=== PATIENT | female | born 1930 | race Caucasian/White ===

== ENCOUNTER 2018-04-20 10:19 | Emergency (ER) | payer MEDICARE ==
--- NOTE | 2018-04-20 10:43 | ED ---
GI/ HPI - HPI Summary HPI Summary: 88 y/o female presents to the ED c/o bilateral flank pain. Pain rated 7-8/10. Associated sx: mild ABD pain. No FHx aneurysms. Self-cath. Denies fevers, diaphoresis, chills. No BM reported in 5 days; usually pt goes every other day or so. - History of Current Complaint Chief Complaint: EDFlankPain Time Seen by Provider: 04/20/18 10:32 Stated Complaint: BACK PAIN Hx Obtained From: Patient Pain Intensity: 8 Location of Pain: Flank Associated Signs and Symptoms: Positive: Abdominal Pain. Negative: Diaphoresis , Fever, Chills - Allergy/Home Medications Allergies/Adverse Reactions: Allergies Allergy/AdvReac Type Severity Reaction Status Date / Time Sulfa (Sulfonamide Allergy Hives Verified 04/20/18 10:29 Antibiotics) Home Medications: Home Medications Alendronate TAB (NF) [Fosamax TAB (NF)] 70 mg PO WEEKLY 04/20/18 [History Confirmed 04/20/18] Citalopram TAB* [CeleXA TAB*] 10 mg PO DAILY 04/20/18 [History Confirmed ] Dabigatran CAP(NF) [Pradaxa CAP(NF)] 75 mg PO BID 04/20/18 [History Confirmed ] Levothyroxine TAB* [Synthroid TAB*] 88 mcg PO DAILY 04/20/18 [History Confirmed 04/20/18] Lisinopril TAB* [Prinivil TAB*] 10 mg PO DAILY 04/20/18 [History Confirmed 04/20] Metoprolol Succinate XL TAB* [Toprol XL TAB*] 50 mg PO DAILY 04/20/18 [History Confirmed 04/20/18] Trimethoprim TAB* 100 mg PO .TWICE WEEKLY 04/20/18 [History Confirmed 04/20/18] PMH/Surg Hx/FS Hx/Imm Hx Previously Healthy: No Endocrine/Hematology History: Reports: Hx Thyroid Disease - Surgical History Surgery Procedure, Year, and Place: hysterectomy, hernia,right leg, BREAST CYSTS REMOVED Infectious Disease History: No Infectious Disease History: Denies: Hx Clostridium Difficile, Hx Hepatitis, Hx Human Immunodeficiency Virus (HIV), Hx of Known/Suspected MRSA, Hx Shingles, Hx Tuberculosis, Traveled Outside the [place] in Last 30 Days - Family History Known Family History: Positive: Hypertension - Social History Alcohol Use: Occasionally Hx Substance Use: No Substance Use Type: Reports: None Hx Tobacco Use: Yes Smoking Status (MU): Former Smoker Review of Systems Negative: Fever, Chills Negative: Erythema Negative: Sore Throat Negative: Chest Pain Negative: Shortness Of Breath, Cough Negative: Abdominal Pain, Vomiting, Nausea Positive: flank pain. Negative: dysuria, hematuria Negative: Myalgia, Edema Negative: Rash Neurological: Other - No dizziness All Other Systems Reviewed And Are Negative: Yes Physical Exam - Summary Physical Exam Summary: Constitutional: Well-developed, Well-nourished, Alert. (-) Distressed Skin: Warm, Dry HENT: Normocephalic; Atraumatic Eyes: Conjunctiva normal Neck: Musculoskeletal ROM normal neck. (-) JVD, (-) Stridor, (-) Tracheal deviation Cardio: Rhythm regular, rate normal, Heart sounds normal; Intact distal pulses; The pedal pulses are 2+ and symmetric. Radial pulses are 2+ and symmetric. (-) Murmur Pulmonary/Chest wall: Effort normal. (-) Respiratory distress, (-) Wheezes, (-) Rales Abd: Soft, (-), epigastric tenderness, (-) Distension, (-) Guarding, (-) Rebound. No significant CVA tenderness. Musculoskeletal: (-) Edema Lymph: (-) Cervical adenopathy Neuro: Alert, Oriented x3 Psych: Mood and affect Normal Triage Information Reviewed: Yes Vital Signs On Initial Exam: Initial Vitals Temp Pulse Resp BP Pulse Ox 97.7 F 63 17 159/88 94 04/20/18 10:22 04/20/18 10:22 04/20/18 10:22 04/20/18 10:22 04/20/18 10:22 Vital Signs Reviewed: Yes Diagnostics - Vital Signs Vital Signs Temp Pulse Resp BP Pulse Ox 04/20/18 10:22 97.7 F 63 17 159/88 94 - Laboratory Result Diagrams: 04/20/18 10:56 04/20/18 10:56 Lab Statement: Any lab studies that have been ordered have been reviewed, and results considered in the medical decision making process. - CT CHEST/PELVIS/ABD CTA CT Interpretation: Positive (See Comments) - 1. ATHEROSCLEROSIS. 2. MILD ECTASIA OF ASCENDING THORACIC AORTA. NO INTIMAL FLAP TO SUGGEST DISSECTION. 3. HIATAL HERNIA. 4. DIVERTICULOSIS. 5. BILATERAL SACRAL INSUFFICIENCY FRACTURES. CT Interpretation Completed By: Radiologist Re-Evaluation - Re-Evaluation 1 Re-Evaluation Time: 14:07 Comment: Discuss plan to d/c. Pain is resolved GIGU Course/Dx - Course Assessment/Plan: No real tenderness. High risk for UTI. Urine seems infected. There could be some contribution from constipation. PT will be d/c home with Fleet enema, magnesium citrate. No suspicion for surgical ABD. Will not prescribe narcatoic pain medication as it will worsen her constipation. Pt is aware of her pelvic fracture. - Diagnoses Provider Diagnoses: UTI (urinary tract infection), Constipation Discharge - Discharge Plan Condition: Stable Disposition: HOME Prescriptions: Cephalexin CAP* [Keflex CAP*] 500 mg PO QID #28 cap Patient Education Materials: Magnesium Citrate (By mouth), Constipation (ED), Urinary Tract Infection in Women (ED), Fleet Enema (ED) Referrals: Dawn Munoz MD [Primary Care Provider] - 4 Days (PLEASE F/U IN 3-5 DAYS ) [facility] [Outside] (PLEASE CALL FOR AN APPOINTMENT) Additional Instructions: RETURN TO THE ED FOR CHANGING/WORSENING OF SYMPTOMS
[2018-04-20 11:12] LABS: ABS Basophils 0.1 10^3/ul (0-0.2); ABS Eosinophils 0.1 10^3/ul (0-0.6); ABS Lymphocytes 0.9 10^3/ul (1.0-4.8); ABS Neutrophils 7.1 10^3/ul (1.5-7.7); ABS Nucleated RBC 0 10^3/ul; Eosinophil % 1.1 % (0-6); Hematocrit 38 % (35-47); Hemoglobin 12.7 g/dl (12.0-16.0); Lymphocyte % 9.5 % (25-47); Mean Corpuscular HGB Conc 33 g/dl (31-36); Mean Corpuscular Hemoglobin 31 pg (27-31); Mean Corpuscular Volume 93 fL (80-97); Mean Platelet Volume 6.8 um3 (7.4-10.4); Nucleated Red Blood Cells % 0; Platelet Count 286 10^3/ul (150-450); Red Blood Count 4.12 10^6/ul (4.00-5.40); Red Cell Distribution Width 15 % (10.5-15); White Blood Count 9.1 10^3/ul (3.5-10.8)
[2018-04-20] MEDS ORDERED: Ondansetron ODT TAB* 4 MG PO ONE (11:18)
[2018-04-20] MEDS ORDERED: traMADol TAB* 50 MG PO ONE (11:19)
[2018-04-20 11:21] LABS: INR 1.06 (0.77-1.02)
[2018-04-20 11:33] LABS: EGFR Non-African American 47.6 (>60)
[2018-04-20 11:41] LABS: Urine Appearance Cloudy; Urine Blood 3+ (Negative); Urine Color Yellow; Urine Ketones Negative (Negative); Urine Protein Negative (Negative); Urine Red Blood Cell 2+(6-10/hpf) (Absent); Urine Specific Gravity 1.019 (1.010-1.030); Urine Urobilinogen Negative (Negative); Urine White Blood Cell 1+(6-10/hpf) (Absent)
[2018-04-20] MEDS ORDERED: NS 0.9% 1000 ML* 1,000 ML IV ONE (12:06)
[2018-04-20] MEDS ORDERED: Iodixanol* (CONTRAST) 320 MG/ML 100 ML SDV IV ONE (13:08)
--- NOTE | 2018-04-20 13:52 | RAD ---
HISTORY: ABD PAIN INTO BACK, EVAL AORTA COMPARISONS: January 06, 2014 TECHNIQUE: Multiple contiguous axial CT scans were obtained of the chest, abdomen, and pelvis after the administration of intravenous contrast. Coronal and sagittal multiplanar reformations are submitted for review.. 3-D volumetric reconstructions of the aorta are also submitted for review. FINDINGS: CHEST NECK AND THYROID: The lower neck and thyroid are unremarkable. CHEST WALL: There is no lower cervical, axillary, or supraclavicular lymphadenopathy by size criteria. HEART AND PERICARDIUM: The heart is unremarkable. AORTA AND PULMONARY VASCULATURE: There is atherosclerosis of the thoracic aorta. There is no intestinal dilatation or dissection flap. There is mild ectasia of the ascending thoracic aorta up to 3.1 cm. The pulmonary vasculature is normal for technique. MEDIASTINUM: There is no mediastinal lymphadenopathy by size criteria. CALISTA: There is no hilar lymphadenopathy by size criteria. AIRWAY AND ESOPHAGUS: The airway is unremarkable, without endobronchial filling defect. The esophagus is grossly normal. LUNG PARENCHYMA: There are scattered pulmonary parenchymal nodules measuring up to 0.5 cm. These are stable from the previous examination. The stability is consistent with benign nodularity. PLEURA: No pleural abnormalities are noted. BONES AND SOFT TISSUES: There is a scoliotic curvature of the spine. Degenerative changes are noted. ABDOMEN/PELVIS: LIVER: The liver is normal in shape, size, contour, and attenuation. BILE DUCTS: There is no intrahepatic or extrahepatic biliary dilatation. GALLBLADDER: Small gallstones are noted. There is no pericholecystic inflammatory change. PANCREAS: The pancreas is normal, without mass or ductal dilatation. SPLEEN: Normal in size and appearance. UPPER GI TRACT: Evaluation of the gastrointestinal tract is limited by incomplete gastric distention. There is a moderate sliding hiatal hernia. SMALL BOWEL & MESENTERY: The small bowel is normal in contour, course, and caliber. There is no obstruction or dilatation. COLON: There is extensive diverticulosis of the distal colon without pericolonic inflammatory change. ADRENALS: Normal bilaterally. KIDNEYS: The kidneys are normal in shape, size, contour, and axis. There is no hydronephrosis or nephrolithiasis. BLADDER: The bladder is collapsed around a [place] catheter. PELVIC ORGANS: The pelvic organs are not visualized. A pessary is noted. AORTA: There is calcific atherosclerotic disease of the abdominal aorta and its branches, without aneurysmal dilatation IVC: Unremarkable LYMPH NODES: There is no lymphadenopathy by size criteria. ABDOMINAL WALL: There is no evidence for abdominal wall hernia. BONES AND SOFT TISSUES: There is chronic posttraumatic deformity to the left inferior pubic ramus. There is bilateral sacral insufficiency fractures. Degenerative changes are noted of the spine. There is diffuse osteopenia. OTHER: None IMPRESSION: 1. ATHEROSCLEROSIS. 2. MILD ECTASIA OF ASCENDING THORACIC AORTA. NO INTIMAL FLAP TO SUGGEST DISSECTION. 3. HIATAL HERNIA. 4. DIVERTICULOSIS. 5. BILATERAL SACRAL INSUFFICIENCY FRACTURES.
[2018-04-20] MEDS ORDERED: Magnesium CITRATE* 300 ML BTL PO ONE (14:01)
[2018-04-20] MEDS ORDERED: Cephalexin CAP* 500 MG PO ONE (14:01)
[2018-04-20 14:41] VITALS: BP 122/63
== END 2018-04-20 14:40 | disposition home or self-care (01) ==
LOC: ED 10:19
DX: N39.0 Urinary tract infection, site not specified (principal); K59.00 Constipation, unspecified; K44.9 Diaphragmatic hernia without obstruction or gangrene; K57.30 Diverticulosis of large intestine without perforation or abscess without bleeding; I70.0 Atherosclerosis of aorta; K80.80 Other cholelithiasis without obstruction; E07.9 Disorder of thyroid, unspecified; Z79.899 Other long term (current) drug therapy; Z87.891 Personal history of nicotine dependence; Z88.2 Allergy status to sulfonamides
CPT/HCPCS: 36415; 71275; 74174; 80053; 81003; 81015; 83605; 84484; 85025; 85610; 85730; 87040; 87077; 87086; 87186; 99283; A9270-GY; Q9967

== ENCOUNTER 2018-04-21 22:31 | Inpatient (IN) | payer MEDICARE ==
--- NOTE | 2018-04-22 00:57 | ED ---
GI/ HPI - HPI Summary HPI Summary: This patient is a 88 year old F presenting to [facility] accompanied by daughter with a chief complaint of constipation that began 1 week ago. The patient rates the pain 8/10 in severity. Symptoms aggravated by nothing. Symptoms alleviated by nothing. Patient reports low back pain, flank pain (began 2 days ago and worsened today), nausea, decreased appetite, and weakness. Patient denies fever , urinary symptoms, CP, and SOB. Pt reports that she was seen in the ED yesterday for these symptoms and was diagnosed with constipation. She reports that the enema and magnesium citrate did not alleviate the symptoms. Pt reports she self-catheterizes because she is unable to fully empty her bladder without it. - History of Current Complaint Chief Complaint: EDAbdPain Time Seen by Provider: 04/22/18 00:45 Stated Complaint: ABD/BACK PAIN Hx Obtained From: Patient Onset/Duration: Started Weeks Ago, Atraumatic, Still Present Timing: Constant Severity: Severe Current Severity: Severe Pain Intensity: 8 Associated Signs and Symptoms: Positive: Other: - Positive low back pain, flank pain (began 2 days ago), nausea, decreased appetite, and weakness. Negative urinary symptoms, CP, and SOB. Aggravating Factor(s): Nothing Alleviating Factor(s): Nothing - Allergy/Home Medications Allergies/Adverse Reactions: Allergies Allergy/AdvReac Type Severity Reaction Status Date / Time Sulfa (Sulfonamide Allergy Hives Verified 04/21/18 22:35 Antibiotics) PMH/Surg Hx/FS Hx/Imm Hx Previously Healthy: No Endocrine/Hematology History: Reports: Hx Thyroid Disease Denies: Hx Diabetes Cardiovascular History: Reports: Hx Atrial Fibrillation GI History: Reports: Other GI Disorders - Constipation Opthamlomology History: Denies: Hx Legally Blind EENT History: Denies: Hx Deafness - Surgical History Surgery Procedure, Year, and Place: hysterectomy, hernia,right leg, BREAST CYSTS REMOVED Infectious Disease History: No Infectious Disease History: Denies: Hx Clostridium Difficile, Hx Hepatitis, Hx Human Immunodeficiency Virus (HIV), Hx of Known/Suspected MRSA, Hx Shingles, Hx Tuberculosis, Traveled Outside the [place] in Last 30 Days - Family History Known Family History: Positive: Hypertension - Social History Occupation: Retired Lives: Alone Alcohol Use: Occasionally Hx Substance Use: No Substance Use Type: Reports: None Hx Tobacco Use: Yes Smoking Status (MU): Former Smoker Review of Systems Negative: Fever Negative: Chest Pain Negative: Shortness Of Breath Positive: Abdominal Pain, Vomiting, Nausea, Other - Positive decreased appetite Positive: no symptoms reported Positive: Other - Positive back pain All Other Systems Reviewed And Are Negative: Yes Physical Exam - Summary Physical Exam Summary: Appearance: Well-appearing, Well-nourished, lying in bed comfortably Skin: Warm, dry, no obvious rash Eyes: sclera anicteric, no conjunctival pallor ENT: mucous membranes moist, pharynx appears normal Neck: Supple, nontender Respiratory: Clear to auscultation, no signs of respiratory distress Cardiovascular: Normal S1, S2. No murmurs. Normal distal pulses in tibial and radial bilaterally. Abdomen: Soft, nontender, normal active bowel sounds present Musculoskeletal: Normal, Strength/ROM Intact Neurological: A&Ox3, awake and alert, mentation is normal, speech is fluent and appropriate Psychiatric: affect is normal, does not appear anxious or depressed Triage Information Reviewed: Yes Vital Signs On Initial Exam: Initial Vitals Temp Pulse Resp BP Pulse Ox 98.6 F 71 16 112/46 94 04/21/18 22:36 04/21/18 22:36 04/21/18 22:36 04/21/18 22:36 04/21/18 22:36 Vital Signs Reviewed: Yes Diagnostics - Vital Signs Vital Signs Temp Pulse Resp BP Pulse Ox 04/21/18 22:36 98.6 F 71 16 112/46 94 - Laboratory Result Diagrams: 04/22/18 01:12 04/22/18 01:12 Lab Statement: Any lab studies that have been ordered have been reviewed, and results considered in the medical decision making process. GIGU Course/Dx - Diagnoses Provider Diagnoses: Generalized weakness, Constipation, Dehydration - Physician Notifications Discussed Care Of Patient With: Mauricio Ospina Time Discussed With Above Provider: 05:38 Instructed by Provider To: Other - Consult with Dr. Ospina (hospitalist) at 0538. He agrees to admit pt for furter evaluation. Discharge - Sign-Out/Discharge Documenting (check all that apply): Patient Departure - Discharge Plan Condition: Guarded Disposition: ADMITTED TO [facility] Referrals: aDwn Munoz MD [Primary Care Provider] - - Billing Disposition and Condition Condition: GUARDED Disposition: Admitted to [facility]
[2018-04-22 01:26] LABS: ABS Basophils 0.1 10^3/ul (0-0.2); ABS Eosinophils 0 10^3/ul (0-0.6); ABS Lymphocytes 0.7 10^3/ul (1.0-4.8); ABS Nucleated RBC 0 10^3/ul; Eosinophil % 0.3 % (0-6); Hematocrit 36 % (35-47); Hemoglobin 11.9 g/dl (12.0-16.0); Lymphocyte % 7.6 % (25-47); Mean Corpuscular HGB Conc 33 g/dl (31-36); Mean Corpuscular Hemoglobin 31 pg (27-31); Mean Corpuscular Volume 93 fL (80-97); Nucleated Red Blood Cells % 0; Platelet Count 279 10^3/ul (150-450); Red Blood Count 3.84 10^6/ul (4.00-5.40); Red Cell Distribution Width 14 % (10.5-15); White Blood Count 9.9 10^3/ul (3.5-10.8)
[2018-04-22 01:42] LABS: EGFR Non-African American 43.9 (>60)
[2018-04-22 01:52] LABS: Urine Appearance Clear; Urine Blood 2+ (Negative); Urine Color Yellow; Urine Ketones Trace (Negative); Urine Protein Negative (Negative); Urine Red Blood Cell 3+(>10/hpf) (Absent); Urine Specific Gravity 1.026 (1.010-1.030); Urine Urobilinogen Negative (Negative); Urine White Blood Cell Absent (Absent)
[2018-04-22] MEDS ORDERED: NS 0.9% 1000 ML* 2,000 ML IV ONE (04:48)
[2018-04-22] MEDS ORDERED: PEG 3000 GI LAVAGE* 1 GALLON PO ONE (07:36)
--- NOTE | 2018-04-22 08:56 | RAD ---
INDICATION: Abdominal pain and movement x1 week COMPARISON: None TECHNIQUE: 2 views the abdomen were obtained. FINDINGS: There are dilated loops of stool-filled small and large bowel. At the low midline abdomen there is a loop of what appears to be small bowel measuring up to 4.5 cm in diameter. The material in the lumen appears to resemble stool consistent with "fecalization" of the contents of the small bowel. Degenerative changes of the lumbar spine includes loss of intervertebral disc height and marginal osteophyte formation. There is levoconvex curvature of the lumbar spine. IMPRESSION:DEGENERATIVE FINDINGS ARE CONSISTENT WITH AT LEAST PARTIAL BOWEL OBSTRUCTION WITH THE SMALL BOWEL BEING DILATED TO 4.5 CM IN DIAMETER AND THE CONTENTS MORE CLOSELY RESEMBLING STOOL.
[2018-04-22] MEDS: Citalopram TAB* 10 MG PO SCH (09:18)
[2018-04-22] MEDS: Metoprolol Succinate XL TAB* 50 MG PO SCH (09:18)
[2018-04-22] MEDS: Lisinopril TAB* 10 MG PO SCH (09:18)
[2018-04-22] MEDS: CMCS Dabigatran CAP(NF) 75 MG CAP PO SCH ×2 (09:18→21:29)
[2018-04-22] MEDS: Cephalexin CAP* 500 MG PO SCH ×4 (09:18→21:29)
[2018-04-22] MEDS: NS 0.9% 1000 ML* 1,000 ML IV SCH ×2 (09:18→21:38)
[2018-04-22] MEDS: Levothyroxine TAB* 88 MCG TAB PO SCH (09:18)
--- NOTE | 2018-04-22 09:46 | HP ---
CC: Dr. Munoz * HISTORY AND PHYSICAL: DATE OF ADMISSION: 04/22/18 PRIMARY CARE PROVIDER: Dr. Munoz. NEWS PRODUCTION SUPERVISOR: Dr. Patel. CHIEF COMPLAINT: Abdominal pain and weakness. HISTORY OF PRESENT ILLNESS: Ms. Bocanegra is an 88-year-old female who initially presented to the emergency room on 04/20/18 with complaints of abdominal pain and constipation. The patient had not moved her bowels in approximately 5 days. The patient was treated with magnesium citrate and Fleet Enema on discharge from the emergency room and despite utilizing these medications she still did not move her bowels. She represented to the emergency room on 04/21/18 with continued complaints now a feeling of weakness. The patient straight catheterizes to empty her bladder; however, she states that she is now too weak to stand and try to get the straight catheterization complete. 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 The patient because of this represented to the emergency room. In the ER, the patient received 2 L of fluid. She states that she feels essentially the same. At this point in time, I am admitting the patient under observation status to treat her constipation and weakness and make sure she is able to get back to the point where she can straight catheterize self at home. PAST MEDICAL HISTORY: 1. Urinary retention with straight catheterization 4 times daily. 2. Paroxysmal atrial fibrillation. 3. Hypothyroidism. 4. Hypertension. PAST SURGICAL HISTORY: 1. Hysterectomy. 2. Inguinal hernia repair. 3. Bilateral breast cyst removal. MEDICATIONS: 1. Keflex 500 mg p.o. 4 times daily. 2. Fosamax 70 mg p.o. weekly. 3. Trimethoprim 100 mg p.o. twice weekly. 4. Metoprolol XL 50 mg p.o. daily. 5. Lisinopril 10 mg p.o. daily. 6. Levothyroxine 88 mcg p.o. daily. 7. Pradaxa 75 mg p.o. b.i.d. 8. Celexa 10 mg p.o. daily. ALLERGIES: Sulfa. FAMILY HISTORY: Mom in her 50s; she had some sort of heart disease, also she had cirrhosis from alcoholism. Dad at the age of 96; he had a history of CVA and Parkinson's. SOCIAL HISTORY: The patient was a former smoker quitting greater than 20 years ago. She drinks alcohol on occasion. 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 She is . She has 3 children. She indicates that her youngest daughter Hanane Ramirez would be her healthcare proxy. REVIEW OF SYSTEMS: The patient denies any fevers or chills. She states her appetite has been poor over the last several days. No chest pain. She has chronic lower extremity edema and typically wears KLYEIGH hose. She denies any cough or shortness of breath. She does feel somewhat queazy. She admits to diffuse generalized abdominal pain. She is constipated as above. No hematuria , no dysuria. She admits to generalized weakness, nonfocal. No sudden changes in vision. No dysphagia. No joint pains or muscles pains other than ordinary. No rashes. No anxiety or depression. PHYSICAL EXAMINATION GENERAL: The patient is a well-developed elderly female, seen lying in the stretcher in the emergency room in no acute distress. VITAL SIGNS: Blood pressure 125/66, pulse 66, respirations 21, temp 98.6, O2 sat 93%. HEENT: Pupils are equal and round. Extraocular muscles are intact. Oropharynx is clear. Oral mucosa is moist. NECK: There is no submandibular, cervical, or supraclavicular adenopathy. Thyroid is not enlarged. No thyroid nodules are noted. PULMONARY: Lungs are clear to auscultation bilaterally. CARDIAC: Normal S1, S2. Heart rate is irregularly irregular but controlled. There are no murmurs. There is trace lower extremity edema. ABDOMEN: Bowel sounds present. Abdomen is soft, slightly distended, tympanic to percussion, nontender. MUSCULOSKELETAL: There is no cyanosis or clubbing of the digits. There is full active range of motion of all 4 extremities. SKIN: Warm and dry. There are no rashes. NEUROLOGIC: Cranial nerves II through XII are grossly intact. Sensation is intact to light touch throughout. Strength is 5/5 and symmetric in both upper and lower extremities bilaterally. PSYCH: The patient is alert. She is oriented x3. Affect appears appropriate. LABORATORY DATA: WBC 9.9, hemoglobin 11.9, hematocrit 36, platelets 279. Sodium 138, potassium 4.9, chloride 104, CO2 25, BUN 29, creatinine 1.17, this is up from her baseline of 0.9, glucose 137, calcium 8.9, bilirubin 0.5. AST 22 , ALT 11, alk phos 116, albumin 3.6. Urinalysis reveals trace ketones, 2+ blood , 3+ rbc's, absent nitrites and leukocyte esterase. Chest, abdomen, and pelvis CTA on 04/20/18 reveals atherosclerosis, mild ectasia of the ascending thoracic aorta. No intimal flap to suggest dissection. Hiatal hernia is noted, diverticulosis is noted, and bilateral sacral insufficiency fractures are noted. ASSESSMENT AND PLAN: Ms. Bocanegra is an 88-year-old female who has a history of urinary retention requiring straight catheterization, who initially presented to the emergency room on 04/20/18 with complaints of abdominal pain and was diagnosed with constipation, treated as an outpatient with magnesium citrate and Fleet Enema with no response and returns to the emergency room with continued symptoms and weakness now with inability to straight catheterize. 1. Constipation. At this point, the patient has not moved her bowels in approximately 7 days. I will go straight to utilizing Fibroblast to get the patient to move her bowels. I suspect her abdominal pain and nausea will likely improve with treatment of her significant constipation. I will obtain a KUB just to evaluate the degree of her constipation at this point. 2. Weakness. I suspect this is related to decreased oral intake as the patient states that she has not been eating all that much due to nausea and decreased appetite. I suspect this is secondary to her constipation. The patient at this point is too weak to straight catheterize herself. PT evaluation will be ordered. We will evaluate her symptoms once she is moving her bowels and able to eat. 3. Urinary tract infection. On 04/20/18, the patient's urinalysis was consistent with urinary tract infection. Her urine grew greater than 100,000 colonies of E. coli. The patient was started on Keflex, which will continue for this time. The sensitivities are not back on this urine specimen from 04/20. 4. Paroxysmal atrial fibrillation. At this time, the patient sounds to be in atrial fibrillation. She is in a controlled rate. She will continue on her usual doses of metoprolol XL and Pradaxa. 5. Hypertension. The patient's blood pressure is under good control. She will continue on metoprolol XL as above and lisinopril at her home dose. 6. Hypothyroidism. The patient's last TSH in our system was from 2011. I will add on a TSH to labs obtained in the emergency room today to ensure she is appropriately treated for her hypothyroidism. 7. DVT prophylaxis. According to the Adult Thrombosis Prophylaxis Risk Factor Assessment guide, the patient has a total risk factor score of 4 making her high risk. She is already on Pradaxa and this will be utilized as her DVT prophylaxis. 8. Code status is full and again the patient indicates that her daughter Hanane Ramirez is her healthcare proxy. TIME SPENT: Sixty-five minutes was spent admitting this patient, of which greater than half was spent [id number] with the patient reviewing her history and performing physical exam. [id number]/[facility] #: [id number] [place]
[2018-04-23] MEDS: Levothyroxine TAB* 88 MCG TAB PO SCH (05:42)
[2018-04-23] MEDS: Cephalexin CAP* 500 MG PO SCH ×4 (09:54→21:16)
[2018-04-23] MEDS: Metoprolol Succinate XL TAB* 50 MG PO SCH (09:54)
[2018-04-23] MEDS: CMCS Dabigatran CAP(NF) 75 MG CAP PO SCH ×2 (09:55→21:16)
[2018-04-23] MEDS: Lisinopril TAB* 10 MG PO SCH (09:55)
[2018-04-23] MEDS: Citalopram TAB* 10 MG PO SCH (09:55)
--- NOTE | 2018-04-23 11:26 | PN ---
Subjective Date of Service: 04/23/18 Interval History: Pt finally had a very large explosive BM yesterday. She has not moved her bowels since. She denies any nausea. Overall she is feeling better but still weak. She has not been walking much. Objective Active Medications: Cephalexin HCl (Keflex Cap*) 500 mg PO QID [facility] Last Admin: 04/23/18 09:54 Dose: 500 mg Citalopram Hydrobromide (Celexa Tab*) 10 mg PO DAILY [facility] Last Admin: 04/23/18 09:55 Dose: 10 mg Dabigatran (Pradaxa Cap(Nf)) 75 mg PO BID [facility] Last Admin: 04/23/18 09:55 Dose: 75 mg Sodium Chloride (Ns 0.9% 1000 Ml*) 1,000 mls @ 75 mls/hr IV PER RATE [facility] Last Admin: 04/22/18 21:38 Dose: 75 mls/hr Levothyroxine Sodium (Synthroid Tab*) 88 mcg PO 0600 [facility] Last Admin: 04/23/18 05:42 Dose: 88 mcg Lisinopril (Prinivil Tab*) 10 mg PO DAILY [facility] Last Admin: 04/23/18 09:55 Dose: 10 mg Metoprolol Succinate (Toprol Xl Tab*) 50 mg PO DAILY [facility] Last Admin: 04/23/18 09:54 Dose: 50 mg Vital Signs - 8 hr 04/23/18 07:25 Temperature 98.5 F Pulse Rate 66 Respiratory 19 Rate Blood Pressure 134/49 (mmHg) O2 Sat by Pulse 93 Oximetry Oxygen Devices in Use Now: Nasal Cannula - 2L Appearance: Elderly female sitting in a chair, NAD Eyes: No Scleral Icterus Ears/Nose/Mouth/Throat: Mucous Membranes Moist Respiratory: Symmetrical Chest Expansion and Respiratory Effort, Clear to Auscultation - diminished breath sounds at the bases Cardiovascular: NL Sounds; No Murmurs; No JVD, No Edema, - - irregularly irregular, controlled rate Abdominal: NL Sounds; No Tenderness; No Distention Extremities: No Clubbing, Cyanosis Skin: No Nodules or Sclerosis Neurological: Alert and Oriented x 3 Result Diagrams: 04/22/18 01:12 04/22/18 01:12 Assess/Plan/Problems-Billing Ms Bocanegra is an 88 yo F who has a h/o PAF, HTN and hypothyroidism who presented to the ER with c/o weakness and constipation. - Patient Problems (1) Constipation Current Visit: Yes Status: Acute Code(s): K59.00 - CONSTIPATION, UNSPECIFIED SNOMED Code(s): 16945994 Comment: Resolved after GoLytely. (2) Weakness Current Visit: Yes Status: Acute Code(s): R53.1 - WEAKNESS SNOMED Code(s) : 39504746 Comment: Likely secondary to poor oral intake when so constipated. Advance diet. She has been hydrated. PT eval cut short yesterday as pt needed to have BM upon standing. Nursing to walk with the patient today. Likely home this afternoon or tomorrow depending on her mobility. (3) E-coli UTI Current Visit: Yes Status: Acute Code(s): N39.0 - URINARY TRACT INFECTION, SITE NOT SPECIFIED; B96.20 - UNSP ESCHERICHIA COLI THE CAUSE OF DISEASES CLASSD [facility] SNOMED Code(s): 605002531 Comment: Pt dx with E coli UTI 04/20/18- she remains on keflex. Will complete 7 days of therapy. (4) PAF (paroxysmal atrial fibrillation) Current Visit: Yes Status: Acute Code(s): I48.0 - PAROXYSMAL ATRIAL FIBRILLATION SNOMED Code(s): 769967685 Comment: HR is controlled. Continue metoprolol XL and pradaxa. (5) HTN (hypertension) Current Visit: Yes Status: Acute Code(s): I10 - ESSENTIAL (PRIMARY) HYPERTENSION SNOMED Code(s): 34049028 Comment: BP is under good control on her usual doses of lisinopril and metoprolol XL. (6) Hypothyroid Current Visit: Yes Status: Acute Code(s): E03.9 - HYPOTHYROIDISM, UNSPECIFIED SNOMED Code(s): 45328594 Comment: TSH in good range. Continue current dose of synthroid. (7) DVT prophylaxis Current Visit: Yes Status: Acute Code(s): [id number] - SNOMED Code(s): 881112338 Comment: pradaxa (8) Full code status Current Visit: Yes Status: Acute Code(s): Z78.9 - OTHER SPECIFIED HEALTH STATUS SNOMED Code(s): 808852108
--- NOTE | 2018-04-23 14:09 | RAD ---
INDICATION: Hypoxia COMPARISON: Most recent comparison chest x-rays dated December 06, 2015 TECHNIQUE: Single AP portable view of the chest was obtained. FINDINGS: Image quality is compromised due to the relative inferiority of a portable chest x-ray. The heart and mediastinum exhibit normal size and contour. Again seen is coarse atherosclerotic calcification overlying the arch of the aorta. There are bibasilar densities obscuring the lung bases and bilateral diaphragm as well as causing wanting of the costophrenic angles. More superiorly the lungs are adequately aerated. Visualized bones are normal for the patient's age. IMPRESSION: Likely bibasilar pleural effusions with adjacent compressive atelectasis of the lower lobes.
[2018-04-23] MEDS: NS 0.9% 1000 ML* 1,000 ML IV SCH (16:13)
[2018-04-24] MEDS: Levothyroxine TAB* 88 MCG TAB PO SCH (06:01)
[2018-04-24] MEDS: NS 0.9% 1000 ML* 1,000 ML IV SCH (06:25)
[2018-04-24 07:05] LABS: EGFR Non-African American 71.1 (>60)
[2018-04-24] MEDS: Cephalexin CAP* 500 MG PO SCH ×4 (08:43→19:54)
[2018-04-24] MEDS: CMCS Dabigatran CAP(NF) 75 MG CAP PO SCH ×2 (08:44→19:54)
[2018-04-24] MEDS: Citalopram TAB* 10 MG PO SCH (08:45)
[2018-04-24] MEDS: Metoprolol Succinate XL TAB* 50 MG PO SCH (08:45)
[2018-04-24] MEDS: Lisinopril TAB* 10 MG PO SCH (08:45)
--- NOTE | 2018-04-24 08:45 | PN ---
Subjective Date of Service: 04/24/18 Interval History: Pt states she is feeling a little better. She states she got some sleep last night. She denies any constant abdominal pain but states she has still been getting crampy abdominal pain. She describes the cramps as originating in her thighs then moving up to her abdomen. She has not walked yet this AM. Objective Active Medications: Cephalexin HCl (Keflex Cap*) 500 mg PO QID [facility] Last Admin: 04/23/18 21:16 Dose: 500 mg Citalopram Hydrobromide (Celexa Tab*) 10 mg PO DAILY [facility] Last Admin: 04/23/18 09:55 Dose: 10 mg Dabigatran (Pradaxa Cap(Nf)) 75 mg PO BID [facility] Last Admin: 04/23/18 21:16 Dose: 75 mg Sodium Chloride (Ns 0.9% 1000 Ml*) 1,000 mls @ 75 mls/hr IV PER RATE [facility] Last Admin: 04/24/18 06:25 Dose: 75 mls/hr Levothyroxine Sodium (Synthroid Tab*) 88 mcg PO 0600 [facility] Last Admin: 04/24/18 06:01 Dose: 88 mcg Lisinopril (Prinivil Tab*) 10 mg PO DAILY [facility] Last Admin: 04/23/18 09:55 Dose: 10 mg Metoprolol Succinate (Toprol Xl Tab*) 50 mg PO DAILY [facility] Last Admin: 04/23/18 09:54 Dose: 50 mg Vital Signs - 8 hr 04/24/18 04/24/18 04/24/18 02:41 03:33 07:37 Temperature 98.6 F 98.5 F Pulse Rate 67 72 Respiratory 20 18 Rate Blood Pressure 119/48 136/58 (mmHg) O2 Sat by Pulse 94 96 94 Oximetry Oxygen Devices in Use Now: Nasal Cannula Result Diagrams: 04/22/18 01:12 04/24/18 06:22 Assess/Plan/Problems-Billing Ms Bocanegra is an 88 yo F who has a h/o PAF, HTN and hypothyroidism who presented to the ER with c/o weakness and constipation. - Patient Problems (1) Hypoxia Current Visit: Yes Status: Acute Code(s): R09.02 - HYPOXEMIA SNOMED Code(s ): 400286508 Comment: The patient has been on supplemental O2 her entire admission. Yesterday attempted to ambulate the patient and her sats were in the 80's on RA. CXR shows basilar effusions. She has not been ambulating much so likely she also has atelectasis. Recheck today. (2) Constipation Current Visit: Yes Status: Acute Code(s): K59.00 - CONSTIPATION, UNSPECIFIED SNOMED Code(s): 87390337 Comment: Resolved after GoLytely. (3) Weakness Current Visit: Yes Status: Acute Code(s): R53.1 - WEAKNESS SNOMED Code(s) : 96689506 Comment: Pt still weak. Will work with nursing and PT to evaluate her ability to safely ambulate. Possibly home this afternoon if stable. Creatinine has returned to normal. (4) E-coli UTI Current Visit: Yes Status: Acute Code(s): N39.0 - URINARY TRACT INFECTION, SITE NOT SPECIFIED; B96.20 - UNSP ESCHERICHIA COLI THE CAUSE OF DISEASES CLASSD [facility] SNOMED Code(s): 907083145 Comment: Pt dx with E coli UTI 04/20/18- Today is D#5/. (5) PAF (paroxysmal atrial fibrillation) Current Visit: Yes Status: Acute Code(s): I48.0 - PAROXYSMAL ATRIAL FIBRILLATION SNOMED Code(s): 748888692 Comment: HR is controlled. Continue metoprolol XL and pradaxa. (6) HTN (hypertension) Current Visit: Yes Status: Acute Code(s): I10 - ESSENTIAL (PRIMARY) HYPERTENSION SNOMED Code(s): 80587025 Comment: BP is under good control on her usual doses of lisinopril and metoprolol XL. (7) Hypothyroid Current Visit: Yes Status: Acute Code(s): E03.9 - HYPOTHYROIDISM, UNSPECIFIED SNOMED Code(s): 48024380 Comment: TSH in good range. Continue current dose of synthroid. (8) DVT prophylaxis Current Visit: Yes Status: Acute Code(s): VFX8364 - SNOMED Code(s): 570626780 Comment: pradaxa (9) Full code status Current Visit: Yes Status: Acute Code(s): Z78.9 - OTHER SPECIFIED HEALTH STATUS SNOMED Code(s): 972880946
[2018-04-24] MEDS ORDERED: Furosemide IV* 10 MG/ML 2 ML VIAL (20 MG) IV ONE (16:03)
--- NOTE | 2018-04-24 16:04 | PN ---
Progress Note - Progress Note Date of Service: 04/24/18 Note: Pt remains hypoxic. Will give lasix 10mg IV x1. Recheck O2 sats tomorrow.
[2018-04-25] MEDS: Levothyroxine TAB* 88 MCG TAB PO SCH (05:33)
[2018-04-25] MEDS: Cephalexin CAP* 500 MG PO SCH ×4 (07:55→22:09)
[2018-04-25] MEDS: Metoprolol Succinate XL TAB* 50 MG PO SCH (07:55)
[2018-04-25] MEDS: Citalopram TAB* 10 MG PO SCH (07:55)
[2018-04-25] MEDS: Lisinopril TAB* 10 MG PO SCH (07:55)
[2018-04-25] MEDS: CMCS Dabigatran CAP(NF) 75 MG CAP PO SCH ×2 (07:56→22:08)
[2018-04-25] MEDS ORDERED: Albuterol 2.5 MG/3 ML NEB.SOL* (0.083%) INH ONE (08:50)
--- NOTE | 2018-04-25 08:54 | PN ---
Subjective Date of Service: 04/25/18 Interval History: Pt is feeling ok today. She states she wished the gas in her abdomen would go away. She denies any abdominal pain at this time. She agrees to get up and get walking more today. She states she does get SOB with exertion. Objective Active Medications: Cephalexin HCl (Keflex Cap*) 500 mg PO QID [facility] Last Admin: 04/25/18 07:55 Dose: 500 mg Citalopram Hydrobromide (Celexa Tab*) 10 mg PO DAILY [facility] Last Admin: 04/25/18 07:55 Dose: 10 mg Dabigatran (Pradaxa Cap(Nf)) 75 mg PO BID [facility] Last Admin: 04/25/18 07:56 Dose: 75 mg Levothyroxine Sodium (Synthroid Tab*) 88 mcg PO 0600 [facility] Last Admin: 04/25/18 05:33 Dose: 88 mcg Lisinopril (Prinivil Tab*) 10 mg PO DAILY [facility] Last Admin: 04/25/18 07:55 Dose: 10 mg Metoprolol Succinate (Toprol Xl Tab*) 50 mg PO DAILY [facility] Last Admin: 04/25/18 07:55 Dose: 50 mg Vital Signs - 8 hr 04/25/18 04/25/18 03:41 07:19 Temperature 97.9 F 98.1 F Pulse Rate 66 71 Respiratory 18 18 Rate Blood Pressure 120/51 133/58 (mmHg) O2 Sat by Pulse 96 96 Oximetry Oxygen Devices in Use Now: Nasal Cannula Appearance: Elderly female sitting up in a chair, eating breakfast, NAD Eyes: No Scleral Icterus Ears/Nose/Mouth/Throat: Mucous Membranes Moist Respiratory: Symmetrical Chest Expansion and Respiratory Effort, Clear to Auscultation - diminshed breath sounds in lower lobes with expiratory wheezes Cardiovascular: NL Sounds; No Murmurs; No JVD, No Edema, - - irregularly irregular, controlled rate Abdominal: NL Sounds; No Tenderness; No Distention Extremities: No Clubbing, Cyanosis Skin: No Nodules or Sclerosis Neurological: Alert and Oriented x 3 Result Diagrams: 04/22/18 01:12 04/24/18 06:22 Assess/Plan/Problems-Billing Ms Bocanegra is an 88 yo F who has a h/o PAF, HTN and hypothyroidism who presented to the ER with c/o weakness and constipation. - Patient Problems (1) Hypoxia Current Visit: Yes Status: Acute Code(s): R09.02 - HYPOXEMIA SNOMED Code(s ): 164614966 Comment: The patient still has diminshed breath sounds at the bases and expiratory wheezes. I think her hypoxia is related to her past history of smoking and likely some degree of COPD and fluid (has pleural effusions on CXR) . IV lasix given yesterday-when I checked her O2 sat this AM she fluctuated from 87-94% (mostly in the 90's). She has been hypoxic looking back, to her time in the ER prior to receiving IV fluids. I question if she has needed supplemental O2 for a while. Will check sats again today at rest and ambulation with nursing. (2) Constipation Current Visit: Yes Status: Acute Code(s): K59.00 - CONSTIPATION, UNSPECIFIED SNOMED Code(s): 55480955 Comment: Resolved after GoLytely. Pt now with significant gas. Will start simethicone. (3) Weakness Current Visit: Yes Status: Acute Code(s): R53.1 - WEAKNESS SNOMED Code(s) : 71407079 Comment: Pt still weak. PT noted the patient would benefit from STR. Pt will consider this but wants to discuss with her daughter. (4) E-coli UTI Current Visit: Yes Status: Acute Code(s): N39.0 - URINARY TRACT INFECTION, SITE NOT SPECIFIED; B96.20 - UNSP ESCHERICHIA COLI THE CAUSE OF DISEASES CLASSD [facility] SNOMED Code(s): 162845361 Comment: Pt dx with E coli UTI 04/20/18- Today is D#6/7. (5) PAF (paroxysmal atrial fibrillation) Current Visit: Yes Status: Acute Code(s): I48.0 - PAROXYSMAL ATRIAL FIBRILLATION SNOMED Code(s): 016317918 Comment: HR is controlled. Continue metoprolol XL and pradaxa. (6) Urinary retention Current Visit: Yes Status: Acute Code(s): R33.9 - RETENTION OF URINE, UNSPECIFIED SNOMED Code(s): 218831160 Comment: Continue to straight cath 4x daily. (7) HTN (hypertension) Current Visit: Yes Status: Acute Code(s): I10 - ESSENTIAL (PRIMARY) HYPERTENSION SNOMED Code(s): 15366063 Comment: BP is under good control on her usual doses of lisinopril and metoprolol XL. (8) Hypothyroid Current Visit: Yes Status: Acute Code(s): E03.9 - HYPOTHYROIDISM, UNSPECIFIED SNOMED Code(s): 59940296 Comment: TSH in good range. Continue current dose of synthroid. (9) DVT prophylaxis Current Visit: Yes Status: Acute Code(s): ACU7069 - SNOMED Code(s): 908974862 Comment: pradaxa (10) Full code status Current Visit: Yes Status: Acute Code(s): Z78.9 - OTHER SPECIFIED HEALTH STATUS SNOMED Code(s): 653464757
[2018-04-25] MEDS: Acetaminophen TAB* 325 MG PO PRN ×2 (17:48→22:08)
[2018-04-26] MEDS: Levothyroxine TAB* 88 MCG TAB PO SCH (05:53)
[2018-04-26] MEDS: Metoprolol Succinate XL TAB* 50 MG PO SCH (09:50)
[2018-04-26] MEDS: Lisinopril TAB* 10 MG PO SCH (09:50)
[2018-04-26] MEDS: Cephalexin CAP* 500 MG PO SCH ×4 (09:50→20:42)
[2018-04-26] MEDS: Citalopram TAB* 10 MG PO SCH (09:50)
[2018-04-26] MEDS: Simethicone TAB* 80 MG TAB.CHEW PO PRN (09:50)
[2018-04-26] MEDS: CMCS Dabigatran CAP(NF) 75 MG CAP PO SCH ×2 (09:53→20:42)
[2018-04-26] MEDS: Polyethylene Glycol 3350* 17 GM PACKET PO PRN (11:42)
[2018-04-26] MEDS: Docusate CAP* 100 MG PO PRN (11:42)
--- NOTE | 2018-04-26 12:18 | RAD ---
Indication: Hypoxia. Single frontal view of the chest performed at 1155 hours was reviewed. Comparison is made with previous exam dated April 23, 2018. Cardiomegaly. Bilateral pleural effusion with bibasilar atelectasis is noted. No evidence of alveolar consolidation is noted. IMPRESSION: CARDIOMEGALY WITH BILATERAL PLEURAL EFFUSIONS AND BIBASILAR ATELECTASIS.
[2018-04-26] MEDS ORDERED: Furosemide IV* 10 MG/ML 2 ML VIAL (20 MG) IV ONE (14:07)
--- NOTE | 2018-04-26 15:27 | PN ---
Subjective Date of Service: 04/26/18 Interval History: Hypoxic to 86% on room air at rest per RN report. Ms. Bocanegra feels okay and has no complaints at this time, she is anxious to go home to her cat but is agreeable to [facility]. She does not feel short of breath, she denies cough, orthopnea, chest pain, sputum production. Objective Active Medications: Acetaminophen (Tylenol Tab*) 650 mg PO Q4H PRN PRN Reason: PAIN Last Admin: 04/25/18 22:08 Dose: 650 mg Cephalexin HCl (Keflex Cap*) 500 mg PO QID [facility] Last Admin: 04/26/18 13:45 Dose: 500 mg Citalopram Hydrobromide (Celexa Tab*) 10 mg PO DAILY [facility] Last Admin: 04/26/18 09:50 Dose: 10 mg Dabigatran (Pradaxa Cap(Nf)) 75 mg PO BID [facility] Last Admin: 04/26/18 09:53 Dose: 75 mg Docusate Sodium (Colace Cap*) 200 mg PO DAILY PRN PRN Reason: CONSTIPATION Last Admin: 04/26/18 11:42 Dose: 200 mg Levothyroxine Sodium (Synthroid Tab*) 88 mcg PO 0600 [facility] Last Admin: 04/26/18 05:53 Dose: 88 mcg Lisinopril (Prinivil Tab*) 10 mg PO DAILY [facility] Last Admin: 04/26/18 09:50 Dose: 10 mg Metoprolol Succinate (Toprol Xl Tab*) 50 mg PO DAILY [facility] Last Admin: 04/26/18 09:50 Dose: 50 mg Polyethylene Glycol/Electrolytes (Miralax*) 17 gm PO DAILY PRN PRN Reason: CONSTIPATION Last Admin: 04/26/18 11:42 Dose: 17 gm Simethicone (Mylicon Tab*) 80 mg PO Q6H PRN PRN Reason: gas Last Admin: 04/26/18 09:50 Dose: 80 mg Vital Signs - 8 hr 04/26/18 04/26/18 04/26/18 07:44 08:00 11:26 Temperature 97.8 F Pulse Rate 62 73 Respiratory 18 Rate Blood Pressure 133/58 108/53 (mmHg) O2 Sat by Pulse 96 98 Oximetry 04/26/18 11:31 Temperature Pulse Rate Respiratory Rate Blood Pressure (mmHg) O2 Sat by Pulse 86 Oximetry Oxygen Devices in Use Now: Nasal Cannula Appearance: alert, sitting up in chair, breathing comfortably and speaking in full sentences Eyes: No Scleral Icterus Ears/Nose/Mouth/Throat: NL Teeth, Lips, Gums Neck: NL Appearance and Movements; NL JVP Respiratory: Symmetrical Chest Expansion and Respiratory Effort, Clear to Auscultation, - - few crackles at bases Cardiovascular: NL Sounds; No Murmurs; No JVD, RRR Abdominal: NL Sounds; No Tenderness; No Distention, No Hepatosplenomegaly Lymphatic: No Cervical Adenopathy Extremities: No Edema Skin: No Rash or Ulcers Neurological: Alert and Oriented x 3 Result Diagrams: 04/22/18 01:12 04/24/18 06:22 Assess/Plan/Problems-Billing Ms Bocanegra is an 88 yo F who has a h/o PAF, HTN and hypothyroidism who presented to the ER with c/o weakness and constipation. - Patient Problems (1) Hypoxia Current Visit: Yes Status: Acute Code(s): R09.02 - HYPOXEMIA SNOMED Code(s ): 849431063 Comment: IV lasix given yesterday with no improvement Repeat CXR today showed pleural effusions This is new for her--check CT chest and TTE Re-try lasix again today (2) Constipation Current Visit: Yes Status: Acute Code(s): K59.00 - CONSTIPATION, UNSPECIFIED SNOMED Code(s): 55668099 Comment: Resolved after GoLytely. Start bowel regimen. Counseled on high fiber diet--she doesn't think she has much fiber in her diet at all and she didn't know what to look for that has fiber in it. (3) E-coli UTI Current Visit: Yes Status: Acute Code(s): N39.0 - URINARY TRACT INFECTION, SITE NOT SPECIFIED; B96.20 - UNSP ESCHERICHIA COLI THE CAUSE OF DISEASES CLASSD [facility] SNOMED Code(s): 372723135 Comment: Pt dx with E coli UTI 04/20/18- Today is D#7/. (4) HTN (hypertension) Current Visit: Yes Status: Acute Code(s): I10 - ESSENTIAL (PRIMARY) HYPERTENSION SNOMED Code(s): 80935225 Comment: BP is under good control on her usual doses of lisinopril and metoprolol XL. (5) PAF (paroxysmal atrial fibrillation) Current Visit: Yes Status: Acute Code(s): I48.0 - PAROXYSMAL ATRIAL FIBRILLATION SNOMED Code(s): 413609598 Comment: HR is controlled. Continue metoprolol XL and pradaxa. (6) Weakness Current Visit: Yes Status: Acute Code(s): R53.1 - WEAKNESS SNOMED Code(s) : 74861878 Comment: PT recommended STR Has bed at [facility]
--- NOTE | 2018-04-26 17:30 | ECHO ---
Patient: KYLEE DASILVA [facility] Rec#: [id number] : 1930 Date: 04/26/2018 Age: 88y Height: 152.4 cm / 60.0 in Weight: 57.15 kg / 126.0 lbs Sex: F BSA: 1.53 Admit Date#: 04/23/2018 Referring: Reyna Rios MD Reading: Karey Mills MD [employer] Offbearer: Claudia Paula RDCS CC: Dawn Munoz MD Transthoracic Echocardiogram Indication: Congestive heart failiure Indications Congestive Heart Failure Findings History: PAF,hypothyroid,HTN. Technical Comments: The study quality is good. Completed at 1530. Left Ventricle: The left ventricular chamber size is normal. Global left ventricular wall motion and contractility are within normal limits. The left ventricle appears hyperdynamic. The estimated ejection fraction is greater than 65%. Normal left ventricular diastolic filling is observed. Abnormal left ventricular diastolic filling is observed, consistent with impaired relaxation. Left Atrium: The left atrium is mildly dilated. Right Ventricle: The right ventricular cavity size is normal. The right ventricular global systolic function is normal. Right Atrium: The right atrial cavity size is normal. Aortic Valve: The aortic valve is trileaflet. There is no evidence of aortic valve thickening. There is no evidence of aortic regurgitation. There is no evidence of aortic stenosis. Mitral Valve: The mitral valve leaflets appear normal. There is mild mitral regurgitation. There is no evidence of mitral stenosis. Tricuspid Valve: The tricuspid valve leaflets are normal. There is mild to moderate tricuspid regurgitation. The right ventricular systolic pressure is estimated at 40 mmHg. There is evidence of mild pulmonary hypertension. There is no tricuspid stenosis. Pulmonic Valve: The pulmonic valve appears normal. There is moderate pulmonic regurgitation. There is no pulmonic stenosis. Pericardium: A pericardial fat pad is visualized. A left pleural effusion is present. There is a moderate pleural effusion. Aorta: There is no dilatation of the ascending aorta. There is no dilatation of the aortic arch. There is mild dilatation of the aortic root. Pulmonary Artery: The main pulmonary artery appears normal. Venous: The inferior vena cava appears normal in size. There is a greater than 50% respiratory change in the inferior vena cava dimension. Conclusions The left ventricle appears hyperdynamic. The estimated ejection fraction is greater than 65%. Abnormal left ventricular diastolic filling is observed, consistent with impaired relaxation. The right ventricular global systolic function is normal. There is mild mitral regurgitation. There is mild to moderate tricuspid regurgitation. The right ventricular systolic pressure is estimated at 40 mmHg, possibly underestimated. There is moderate pulmonic regurgitation. A left pleural effusion is present. No prior echo to compare. Measurements Name Value Normal Range RVIDd (AP) 2D 2.5 cm (0.9 - 2.6) RVDdMajor (2D) 2.6 cm (2.2 - 4.4) RAd ISD 4CH 4.8 cm (3.4 - 4.9) RA (A4C)W 2.6 cm (2.9 - 4.6) IVSd (2D) 1 cm (0.6 - 1) LVPWd (2D) 1.1 cm (0.6 - 1) LVIDd (2D) 3.7 cm (3.6 - 5.4) LVIDs (2D) 2.5 cm - LV FS (2D) 33 % (25 - 45) Aortic Annulus 2.1 cm (1.4 - 2.6) Ao root diameter (2D) 3.6 cm (2.1 - 3.5) Ascending Ao 3 cm (2.1 - 3.4) Aortic arch 2.2 cm (1.8 - 3.4) Descending Ao 0.6 cm - LA dimension (AP) 2D 3.3 cm (2.3 - 3.8) LAd ISD 4CH 5.3 cm (2.9 - 5.3) LA ISD 4CH W 3.7 cm (2.5 - 4.5) Name Value Normal Range LA ESV SP 4CH (A/L) 60 ml - LA ESV SP 2CH (A/L) 43 ml - LA ESV BP (A/L) 52 ml - LA ESV BP (A/L) index 35.52 ml/m2 - LA ESV SP 4CH (MOD) 57 ml - LA ESV SP 2CH (MOD) 39 ml - Name Value Normal Range MV E-wave Vmax 1.1 m/sec - MV deceleration time 189 msec - MV A-wave Vmax 0.9 m/sec - MV E:A ratio 1.3 ratio - LV septal e' Vmax 0.05 m/sec - LV lateral e' Vmax 0.08 m/sec - LV E:e' septal ratio 22 ratio - LV E:e' lateral ratio 13.75 ratio - Name Value Normal Range AV Vmax 1.9 m/sec - AV VTI 39.5 cm - AV peak gradient 14.72 mmHg - AV mean gradient 6.58 mmHg - LVOT Vmax 1.6 m/sec - LVOT VTI 26.8 cm - LVOT peak gradient 10.72 mmHg - LVOT mean gradient 4.34 mmHg - Name Value Normal Range MR Vmax 5.2 m/sec - MR VTI 165.2 cm - Name Value Normal Range TR Vmax 3.1 m/sec - TR peak gradient 37 mmHg - RAP 3 mmHg - RVSP 40 mmHg - IVC diameter 1.6 cm - Name Value Normal Range PV Vmax 1.1 m/sec - PV peak gradient 4.98 mmHg -
[2018-04-27] MEDS: Levothyroxine TAB* 88 MCG TAB PO SCH (05:59)
[2018-04-27] MEDS ORDERED: Furosemide IV* 10 MG/ML 2 ML VIAL (20 MG) IV ONE (08:15)
[2018-04-27] MEDS: Docusate CAP* 100 MG PO PRN (09:06)
[2018-04-27] MEDS: Polyethylene Glycol 3350* 17 GM PACKET PO PRN (09:06)
[2018-04-27] MEDS: Cephalexin CAP* 500 MG PO SCH ×3 (09:08→17:21)
[2018-04-27] MEDS: Citalopram TAB* 10 MG PO SCH (09:08)
[2018-04-27] MEDS: CMCS Dabigatran CAP(NF) 75 MG CAP PO SCH ×2 (09:08→19:37)
[2018-04-27] MEDS: Lisinopril TAB* 10 MG PO SCH (09:08)
[2018-04-27] MEDS: Metoprolol Succinate XL TAB* 50 MG PO SCH (09:09)
[2018-04-27] MEDS: Simethicone TAB* 80 MG TAB.CHEW PO PRN (09:19)
[2018-04-27] MEDS ORDERED: Magnesium CITRATE* 300 ML BTL PO ONE (09:23)
--- NOTE | 2018-04-27 17:12 | PN ---
Subjective Date of Service: 04/27/18 Interval History: Still no bowel movement until this afternoon. Still hypoxic at rest and with ambulation. + orthopnea. Objective Active Medications: Acetaminophen (Tylenol Tab*) 650 mg PO Q4H PRN PRN Reason: PAIN Last Admin: 04/25/18 22:08 Dose: 650 mg Cephalexin HCl (Keflex Cap*) 500 mg PO QID [facility] Last Admin: 04/27/18 12:26 Dose: 500 mg Citalopram Hydrobromide (Celexa Tab*) 10 mg PO DAILY [facility] Last Admin: 04/27/18 09:08 Dose: 10 mg Dabigatran (Pradaxa Cap(Nf)) 75 mg PO BID [facility] Last Admin: 04/27/18 09:08 Dose: 75 mg Docusate Sodium (Colace Cap*) 200 mg PO DAILY PRN PRN Reason: CONSTIPATION Last Admin: 04/27/18 09:06 Dose: 200 mg Levothyroxine Sodium (Synthroid Tab*) 88 mcg PO 0600 [facility] Last Admin: 04/27/18 05:59 Dose: 88 mcg Lisinopril (Prinivil Tab*) 10 mg PO DAILY [facility] Last Admin: 04/27/18 09:08 Dose: 10 mg Metoprolol Succinate (Toprol Xl Tab*) 50 mg PO DAILY [facility] Last Admin: 04/27/18 09:09 Dose: 50 mg Polyethylene Glycol/Electrolytes (Miralax*) 17 gm PO DAILY PRN PRN Reason: CONSTIPATION Last Admin: 04/27/18 09:06 Dose: 17 gm Simethicone (Mylicon Tab*) 80 mg PO Q6H PRN PRN Reason: gas Last Admin: 04/27/18 09:19 Dose: 80 mg Vital Signs - 8 hr 04/27/18 04/27/18 04/27/18 09:54 11:16 15:03 Temperature 98.2 F Pulse Rate 69 Respiratory 18 Rate Blood Pressure 99/42 (mmHg) O2 Sat by Pulse 95 98 84 Oximetry 04/27/18 15:18 Temperature 97.9 F Pulse Rate 65 Respiratory 22 Rate Blood Pressure 115/43 (mmHg) O2 Sat by Pulse 100 Oximetry Oxygen Devices in Use Now: Nasal Cannula Appearance: alert, resting comfortably until I lie her flat, at which point she becomes short of breath and wheezes loudly Eyes: No Scleral Icterus Ears/Nose/Mouth/Throat: NL Teeth, Lips, Gums Neck: NL Appearance and Movements; NL JVP Respiratory: Symmetrical Chest Expansion and Respiratory Effort, - - decreased breath sound both bases Cardiovascular: NL Sounds; No Murmurs; No JVD, RRR Abdominal: NL Sounds; No Tenderness; No Distention, No Hepatosplenomegaly Lymphatic: No Cervical Adenopathy Extremities: - - trace le edema Neurological: Alert and Oriented x 3 Result Diagrams: 04/22/18 01:12 04/24/18 06:22 Assess/Plan/Problems-Billing Ms Bocanegra is an 88 yo F who has a h/o PAF, HTN and hypothyroidism who presented to the ER with c/o weakness and constipation. - Patient Problems (1) Hypoxia Current Visit: Yes Status: Acute Code(s): R09.02 - HYPOXEMIA SNOMED Code(s ): 237682457 Comment: TTE showed impaired relaxation and repeat CXR showed b/l pleural effusions diuresed with iv lasix but still with hypoxia at rest and exertion continue diuresis (2) Constipation Current Visit: Yes Status: Acute Code(s): K59.00 - CONSTIPATION, UNSPECIFIED SNOMED Code(s): 21267309 Comment: Resolved after GoLytely but now it has been 4 days since a bowel movement again [facility] garcia snot had a bm in 3 days mag citrate effective today Counseled on high fiber diet--she doesn't think she has much fiber in her diet at all and she didn't know what to look for that has fiber in it. (3) E-coli UTI Current Visit: Yes Status: Acute Code(s): N39.0 - URINARY TRACT INFECTION, SITE NOT SPECIFIED; B96.20 - UNSP ESCHERICHIA COLI THE CAUSE OF DISEASES CLASSD [facility] SNOMED Code(s): 780827721 Comment: completed 7 day course of abx (4) HTN (hypertension) Current Visit: Yes Status: Acute Code(s): I10 - ESSENTIAL (PRIMARY) HYPERTENSION SNOMED Code(s): 94258376 Comment: BP is under good control on her usual doses of lisinopril and metoprolol XL. (5) PAF (paroxysmal atrial fibrillation) Current Visit: Yes Status: Acute Code(s): I48.0 - PAROXYSMAL ATRIAL FIBRILLATION SNOMED Code(s): 681560577 Comment: HR is controlled. Continue metoprolol XL and pradaxa. (6) Weakness Current Visit: Yes Status: Acute Code(s): R53.1 - WEAKNESS SNOMED Code(s) : 75399065 Comment: PT recommended STR Has bed at [facility]
[2018-04-28] MEDS: Simethicone TAB* 80 MG TAB.CHEW PO PRN (05:40)
[2018-04-28] MEDS: Levothyroxine TAB* 88 MCG TAB PO SCH (05:40)
[2018-04-28] MEDS ORDERED: Furosemide TAB* 40 MG PO SCH (09:00)
[2018-04-28] MEDS: CMCS Dabigatran CAP(NF) 75 MG CAP PO SCH (10:22)
[2018-04-28] MEDS: Acetaminophen TAB* 325 MG PO PRN (10:23)
[2018-04-28] MEDS: Citalopram TAB* 10 MG PO SCH (10:23)
[2018-04-28] MEDS: Lisinopril TAB* 10 MG PO SCH (10:23)
[2018-04-28] MEDS: Metoprolol Succinate XL TAB* 50 MG PO SCH (10:23)
[2018-04-28 11:45] VITALS: BP 102/37
--- NOTE | 2018-04-28 14:38 | DS ---
CC: Dr. Munoz * DISCHARGE SUMMARY: DATE OF ADMISSION: 04/22/18 DATE OF DISCHARGE: 04/28/18 PRIMARY CARE DOCTOR: Dr. Munoz. PRINCIPAL DISCHARGE DIAGNOSES: 1. Constipation. 2. Weakness. 3. Chronic urinary retention. 4. Acute diastolic heart failure. 5. Pulmonary hypertension. SECONDARY DISCHARGE DIAGNOSES: 1. Urinary tract infection. 2. Paroxysmal atrial fibrillation. 3. Hypertension. PHYSICAL EXAMINATION: At the time of discharge, temperature 98.6, heart rate 63 , respiratory rate 16, pulse ox 99% on 2 L, blood pressure 102/37, pulse ox was 85% on room air. General: Alert, well-appearing elderly female in no distress. HEENT: Pupils equal, round, and reactive to light. No nystagmus. Oral mucosa is moist. Neck: No JVD. No cervical adenopathy. Chest: Irregular rhythm. Systolic murmur at the right upper sternal border. Lungs: Clear bilaterally with decreased breath sounds in both bases. Abdomen: Bowel sounds normoactive. Abdomen is soft, nontender, and nondistended. Liver is not palpable. No guarding or rebound. No CVA tenderness. Extremities: 1+ lower extremity edema. Chronic venous stasis changes bilaterally. No rashes or ulcers. PERTINENT DATA: 1. Transthoracic echocardiogram, 04/26/18, showed the left ventricle appears hyperdynamic, the EF is greater than 65%, abnormal LV diastolic filling is observed consistent with impaired relaxation. The RV systolic function is normal. Mild mitral regurgitation. [id number] tricuspid regurgitation. The RVSP is estimated at 40 mmHg, possibly underestimated with moderate pulmonic regurgitation. 2. Chest x-ray, 04/26/18: Cardiomegaly with bilateral pleural effusions and bibasilar atelectasis. HOSPITAL COURSE BY PROBLEM: 1. Constipation. Ms. Bocanegra was admitted after not having a bowel movement for 7 days. A KUB showed no evidence of small bowel obstruction. She was given GoLYTELY and successfully moved her bowels. After she was evaluated by Physical Therapy and a decision was made to transfer her to short-term rehab, unfortunately another 3 days had passed before she had had a bowel movement, so [facility] could not accept her, so she was given mag citrate and again successfully had a bowel movement. She is being discharged on MiraLAX and Colace daily as well as mag citrate as needed for constipation greater than 3 days. She was also counseled on a high-fiber diet, as she does not believe her diet includes any fiber and did not know how to look for foods that contain fiber. 2. Acute hypoxic respiratory failure. Ms. Bocanegra received volume resuscitation at the time of admission and later was noted to be hypoxic. A chest x-ray showed pleural effusion and a transthoracic echo showed impaired relaxation and elevated RV pressures. She was diuresed with IV Lasix. However, at the time of discharge was still requiring 2 L of oxygen. I am discharging her on p.o. 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 3. Chronic urinary retention. She straight cath's 4 times a day when she was admitted. She was being treated as an outpatient for UTI; she completed that course of Keflex and she should continue to straight cath 4 times daily. 4. Paroxysmal AFib. She was rate controlled her on her home dose of metoprolol and was continued on Pradaxa. DISPOSITION: Ms. Bocanegra is being discharged to [facility] after she was evaluated by Physical Therapy and thought that she will benefit from short-term rehab. She was instructed to come back to the emergency department should she develop nausea, vomiting, chest pain, shortness of breath, orthopnea, dyspnea on exertion. Please do not hesitate to call me with any questions or concerns about her admission and this discharge. DISCHARGE MEDICATIONS: 1. Celexa 10 mg daily. 2. Pradaxa 75 mg b.i.d. 3. Docusate 200 mg daily p.r.n. constipation. 4. Lasix 40 mg daily. 5. Levothyroxine 88 mcg daily. 6. Lisinopril 10 mg daily. 7. Metoprolol XL 50 mg daily. 8. MiraLAX 17 g daily p.r.n. constipation. 9. Simethicone 80 mg p.o. q.6 p.r.n. gas. 10. Mag citrate 300 mg bottle p.r.n. no bowel movement for 3 days. [id number]/[facility] #: [id number] [facility]
== END 2018-04-28 15:00 | DRG 391 ==
LOC: ED 22:31 → MED 04-22 07:54 → OBSVTOIN 04-23 11:29
PROVIDERS: ADMIT Hospitalist; ATTEND Internal Medicine
DX: K59.00 Constipation, unspecified (principal); I50.31 Acute diastolic (congestive) heart failure; J96.01 Acute respiratory failure with hypoxia; N39.0 Urinary tract infection, site not specified; M54.5 Low back pain; E86.0 Dehydration; I48.0 Paroxysmal atrial fibrillation; E03.9 Hypothyroidism, unspecified; R53.1 Weakness; R33.9 Retention of urine, unspecified; I27.20 Pulmonary hypertension, unspecified; I08.1 Rheumatic disorders of both mitral and tricuspid valves; B96.20 Unspecified Escherichia coli [E. coli] as the cause of diseases classified elsewhere; I87.8 Other specified disorders of veins; J44.9 Chronic obstructive pulmonary disease, unspecified; I11.0 Hypertensive heart disease with heart failure; Z79.01 Long term (current) use of anticoagulants; Z88.2 Allergy status to sulfonamides; Z90.710 Acquired absence of both cervix and uterus; Z82.49 Family history of ischemic heart disease and other diseases of the circulatory system; Z72.89 Other problems related to lifestyle; Z87.891 Personal history of nicotine dependence; Z81.1 Family history of alcohol abuse and dependence
CPT/HCPCS: 36415; 71045; 71275; 74018; 74174; 80048; 80053; 81003; 81015; 83605; 84443; 84484; 85025; 85610; 85730; 87040; 87077; 87086; 87186; 93306; 94640; 99283; 99284; A9270-GY; G8978-GP-CJ; G8978-GP-CK; G8979-GP-CI; J1940; Q9967